=== PATIENT | female | born 1985 | race Caucasian/White ===

== ENCOUNTER 2019-05-22 11:05 | Day surgery (SDC) | payer OTHER ==
[2019-05-22] MEDS ORDERED: MIDAZOLAM 1 MG/ML 2 ML INJ (13:21)
[2019-05-22] MEDS ORDERED: LORAZEPAM 2 MG INJ IV (13:30)
[2019-05-22] MEDS ORDERED: PROPOFOL 40 ML (13:46)
== END 2019-05-22 16:45 | disposition home or self-care (01) ==
LOC: GIL 11:05
DX: Z86.010 Personal history of colon polyps (principal); K64.4 Residual hemorrhoidal skin tags
CPT/HCPCS: 45378